=== PATIENT | female | born 1995 | race African-American/Black ===

== ENCOUNTER 2017-06-23 22:31 | Emergency (ER) | payer OTHER ==
[~2017-06-23 22:31] MED LIST: NAPROSYN500 MG PO
[2017-06-23 22:37] VITALS: BP 125/74; TEMP 98.7
[2017-06-24 00:23] VITALS: PULSE 103
== END 2017-06-24 00:24 | disposition home or self-care (01) ==
LOC: COL.ER 22:31
DX: J20.9 Acute bronchitis, unspecified (principal); Z90.89 Acquired absence of other organs; Z98.890 Other specified postprocedural states
CPT/HCPCS: J8540